=== PATIENT | male | born 1985 | race Caucasian/White ===

== ENCOUNTER 2016-07-12 19:51 | Observation (INO) | payer OTHER ==
[2016-07-12 20:00] VITALS: RESP 18; TEMP 98; O2SAT 99
--- NOTE | 2016-07-12 21:36 | C.PDOC ---
History Of Present Illness 30 Y/O MALE C/O "DIZZY SPELL" FOR A FEW DAYS. PT ALSO REPORTS FATIGUE, LEFT SHOULDER PAIN, AND NECK PAIN. PT DESCRIBES DIZZINESS LIGHTHEADED SENSATION, RESOLVES AFTER A FEW SECONDS, NO CHANGE WITH POSITIONING. NOTES HE HAS RECENTLY CHANGED DIET 6-8 MONTHS AGO AND DOES NOT EAT MUCH SUGAR. 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 DENIES HEADACHE, FEVER, CHILLS, VOMITING, OR OTHER ASSOC SX. Time Seen by Provider: 07/12/16 20:50 Chief Complaint (Nursing): Dizziness/Lightheaded History Per: Patient History/Exam Limitations: no limitations Onset/Duration Of Symptoms: Days Current Symptoms Are (Timing): Gone Seizure Or Post-ictal Symptoms: None Fall Associated With With Symptoms: No Recent travel outside of the [place]: No Past Medical History Reviewed: Historical Data, Nursing Documentation, Vital Signs Vital Signs: Last Vital Signs Temp 98.0 F 07/12/16 19:57 Pulse 67 07/12/16 19:57 Resp 18 07/12/16 19:57 BP 118/73 07/12/16 19:57 Pulse Ox 99 07/12/16 22:05 - Medical History PMH: Gastritis, GERD, Hiatal Hernia Family History: States: Unknown Family Hx - Social History Hx Tobacco Use: No Hx Alcohol Use: No Hx Substance Use: No - Immunization History Hx Tetanus Toxoid Vaccination: No Hx Influenza Vaccination: No Hx Pneumococcal Vaccination: No Review Of Systems Except As Marked, All Systems Reviewed And Found Negative. Constitutional: Negative for: Fever, Chills Cardiovascular: Negative for: Chest Pain Respiratory: Negative for: Cough, Shortness of Breath, Wheezing Gastrointestinal: Negative for: Vomiting, Abdominal Pain Musculoskeletal: Positive for: Neck Pain, Shoulder Pain Neurological: Positive for: Dizziness. Negative for: Weakness, Numbness, Headache Physical Exam - Physical Exam Appears: Non-toxic, No Acute Distress Skin: Normal Color, Warm, Dry Head: Atraumatic, Normacephalic Eye(s): bilateral: Normal Inspection Neck: Normal ROM, No Midline Cervical Tenderness, No Paracervical Tenderness, Supple Chest: Symmetrical Cardiovascular: Rhythm Regular Respiratory: Normal Breath Sounds, No Rales, No Rhonchi, No Wheezing Gastrointestinal/Abdominal: Soft, No Tenderness Back: Normal Inspection Extremity: Normal ROM, Capillary Refill (< 2 SEC. ) Neurological/Psych: Oriented x3, Normal Speech, Normal Cognition, Normal Motor, Normal Sensation Gait: Steady ED Course And Treatment - Laboratory Results Result Diagrams: 07/12/16 22:21 07/12/16 22:21 O2 Sat by Pulse Oximetry: 99 (RA) Pulse Ox Interpretation: Normal ED OBSERVATION Discharge: Yes Date of observation admission: 07/12/16 Time of observation admission: 21:00 - Observation admission statement Patient is being placed in observation because:: DIZZY, WEAKNESS - Goals of Observation Goals of observation are:: MED CLEAR, SX IMPROVE - Progress Note Progress Note: 07/12/16 23:12 EXAM UNCH, NAD. VSS. LABS NEG. PT REQUESTING LYME TESTING. ADVISED ON TEST RESULT TIME. ADVISED FU PMD Disposition Counseled Patient/Family Regarding: Studies Performed, Need For Followup - Disposition Disposition: HOME/ ROUTINE Disposition Time: 23:13 Condition: GOOD - Clinical Impression Clinical Impression: Dizziness, Malaise and fatigue - Scribe Statement The provider has reviewed the documentation as recorded by the Albert Bragg All medical record entries made by the Albert were at my direction and personally dictated by me. I have reviewed the chart and agree that the record accurately reflects my personal performance of the history, physical exam, medical decision making, and the department course for this patient. I have also personally directed, reviewed, and agree with the discharge instructions and disposition.
[2016-07-12] MEDS ORDERED: Sodium Chloride 0.9% 1,000 ML IV ONE (22:03)
[2016-07-12 22:31] LABS: BASO % 1.1 % (0.0-2.0); EOS % 0.7 % (0.0-4.0); HEMATOCRIT 40.6 % (35.0-51.0); LYMPH # 2.2 K/uL (1.0-4.3); LYMPH % 60.4 % (20.0-40.0); MEAN CELL VOLUME 90.7 fL (80.0-94.0); MEAN CORPUSCULAR HEMOGLOBIN 30.8 pg (27.0-31.0); MEAN PLATELET VOLUME 8.7 fL (7.2-11.7); MONO # 0.3 K/uL (0.0-0.8); MONO % 7.2 % (0.0-10.0); NRBC % 0.1 % (0.0-2.0); WHITE BLOOD COUNT 3.7 K/uL (4.8-10.8)
[2016-07-12 22:37] LABS: CHLORIDE 100 mmol/L (98-107); POTASSIUM 3.6 mmol/L (3.6-5.2); SODIUM 139 mmol/L (132-148)
[2016-07-12 22:40] LABS: BLOOD UREA NITROGEN 12 mg/dL (9-20); CALCIUM 8.8 mg/dl (8.6-10.4); CARBON DIOXIDE 27 mmol/L (22-30); GFR AFRICAN-AMERICAN > 60; GLUCOSE,RANDOM 98 mg/dL (75-110); PHOSPHOROUS 3.8 mg/dL (2.5-4.5)
[2016-07-12 22:41] LABS: MAGNESIUM 2.3 mg/dL (1.6-2.3)
[2016-07-12 22:41] LABS: VENOUS BLOOD GAS BASE EXCESS 2.8 mmol/L (0.0-2.0); VENOUS BLOOD GAS PCO2 57 mmHg (40-60); VENOUS BLOOD PH 7.33 (7.32-7.43)
[2016-07-12 22:44] LABS: RBC URINE < 1 /hpf (0-3); TRANSITIONAL EPITHIAL < 1 /hpf (0-3); URINE BACTERIA RARE (<OCC); URINE BILIRUBIN NEGATIVE (NEGATIVE); URINE BLOOD NEGATIVE (NEGATIVE); URINE COLOR Straw (YELLOW); URINE GLUCOSE (UA) NORMAL (Normal); URINE KETONE NEGATIVE (NEGATIVE); URINE LEUKOCYTE ESTERASE NEG Leu/uL (Negative); URINE PROTEIN NEGATIVE (NEGATIVE); URINE UROBILINOGEN NORMAL mg/dL (0.2-1.0)
[2016-07-12 23:42] VITALS: BP 108/68; PULSE 56
--- NOTE | 2016-07-13 08:17 | RAD ---
HISTORY: SOB COMPARISON: None available. TECHNIQUE: Chest, one view. FINDINGS: LUNGS: No focal consolidation. Please note that chest x-ray has limited sensitivity for the detection of pulmonary masses. PLEURA: No significant pleural effusion identified. No definite pneumothorax . CARDIOVASCULAR: The cardiomediastinal silhouette appears within normal limits of size. OSSEOUS STRUCTURES: No acute osseous abnormality identified. VISUALIZED UPPER ABDOMEN: Unremarkable. OTHER FINDINGS: None. IMPRESSION: No focal consolidation, significant pleural effusion, or definite pneumothorax identified.
[2016-07-14 20:43] LABS: LYME IGG NEGATIVE (NEGATIVE)
[2016-07-14 20:59] LABS: LYME IGM NEGATIVE (NEGATIVE)
== END 2016-07-12 23:13 | disposition home or self-care (01) ==
LOC: C.ER 19:51 → C.9OBSV 21:00
PROVIDERS: ADMIT Emergency Medicine; ATTEND Emergency Medicine
DX: R42 Dizziness and giddiness (principal); R53.81 Other malaise; R53.83 Other fatigue
CPT/HCPCS: 71010; 80048; 81001; 82803; 83735; 84100; 85025; 86618; 96360; G0378; J7040